=== PATIENT | female | born 1950 | race Caucasian/White ===

== ENCOUNTER 2024-05-12 21:09 | Emergency (ER) | payer MEDICARE, OTHER ==
--- NOTE | 2024-05-12 21:22 | ED Physician Documentation ---
History of Present Illness - Stated complaint Stated Complaint: SWALLOWED NEEDLE - History obtained from History obtained from: Patient - Additonal information Additional information: She is a diabetic and had a lancet needle in her hand and excellently put her pills in her hand with it and swallowed it. She has no pain and no symptoms of concern right now but wanted to be checked out. PD ED PE NORMAL - Vitals Vital signs reviewed: Yes - General General: Alert and oriented X 3, No acute distress - HEENT HEENT: Pharynx benign - Neuro Neuro: Alert and oriented X 3 - Psych Psych: Normal mood, Normal affect PD Medical Decision Making - ED course ED course: She shows me another lancet needle that is identical to the when she swallowed. It is basically a piece of plastic about a little over a centimeter long and then an exposed piece of needle that is maybe only 2 mm long. I discussed with her that this would be very unlikely to cause any damage and it is frankly so small that I do not think Radiography would be helpful. She was given signs and symptoms to return for. Departure - Departure Disposition: 01 Home, Self Care Clinical Impression: Swallowed foreign body Qualifiers: Encounter type: initial encounter Qualified Code(s): T18.9XXA - Foreign body of alimentary tract, part unspecified, initial encounter Condition: Good Record reviewed to determine appropriate education?: Yes Instructions: ED Foreign Body Swallowed Adult Comments: As discussed, given the size of the needle you showed me I think is very unlikely this will cause any damage. That said return immediately if develop any significant abdominal or chest pain or bloody or dark or tarry stools.
[2024-05-12 21:28] VITALS: BP 121/109; O2SAT 95
== END 2024-05-12 21:41 | disposition home or self-care (01) ==
LOC: ED 21:09
DX: T18.9XXA Foreign body of alimentary tract, part unspecified, initial encounter (principal); W44.B9XA Other plastic object entering into or through a natural orifice, initial encounter
CPT/HCPCS: 99281; 99282